=== PATIENT | male | born 2000 | race Caucasian/White ===

== ENCOUNTER 2019-02-03 18:15 | Emergency (ER) | payer OTHER ==
[~2019-02-03] VITALS: Ht 165.1 cm; Wt 79.1 kg
[2019-02-03 18:24] VITALS: Ht 165.1 cm; Wt 79.1 kg
[2019-02-03] MEDS: HYDROCODONE/APAP (5/325) TAB PO ONE ×2 (19:55→20:01)
[2019-02-03] MEDS ORDERED: LIDOCAINE 1% (MPF) 5 ML VIAL INFIL ONE (20:00)
[2019-02-03] MEDS ORDERED: SULF1TAB31 PO (20:54)
[2019-02-03] MEDS ORDERED: CEPH-443 PO (20:54)
[2019-02-03] MEDS ORDERED: IBUP-1561 PO (20:54)
--- NOTE | 2019-02-03 20:56 | ERD ---
ER Documentation Chief Complaint Chief Complaint localize swelling/redness abdominal area x 1 week HPI 18-year-old male with no significant past history presents for swelling and redness of the abdominal area x1 week. He states that there is a small mass with redness and pain. The pain is noted to be 8 out of 10, described as a burning sensation, constant, nonradiating. He denies any fevers or chills. Denies chest pain or shortness. No other modifying factors noted, no treatment tried at home. No previous similar symptoms noted. ROS All systems reviewed and are negative except as per history of present illness. Medications Home Meds Active Scripts Ibuprofen* (Motrin*) 400 Mg Tab, 400 MG PO Q6H PRN for PAIN, #30 TAB Prov:MELVAMARILOU 02/03/19 Cephalexin* (Keflex*) 500 Mg Capsule, 500 MG PO TID for skin infection for 7 Days, #21 CAP Prov:MARILOU FRYE DO 02/03/19 Sulfamethoxazole/Trimethoprim* (Bactrim Ds* Tablet) 1 Each Tablet, 1 TAB PO BID for skin infection for 7 Days, #14 TAB Prov:MARILOU FRYE 02/03/19 Allergies Allergies: Coded Allergies: No Known Drug Allergies (Verified Allergy, Unknown, 02/03/19) PMhx/Soc Medical and Surgical Hx: pt denies Medical Hx, pt denies Surgical Hx Hx Alcohol Use: Yes (socially) Hx Substance Use: Yes (mj) Hx Tobacco Use: No Smoking Status: Never smoker FmHx Family History: No coronary disease Physical Exam Vitals Vital Signs Date Temp Pulse Resp B/P (MAP) Pulse Ox O2 O2 Flow FiO2 Time Delivery Rate 02/03/19 99.2 89 18 134/60 98 18:24 (84) Physical Exam Const: No acute distress Resp: Clear to auscultation bilaterally Cardio: Regular rate and rhythm, no murmurs Abd: Soft, non tender, non distended. Normal bowel sounds Skin: Lower abdomen skin lesion noted, about 1cm with erythema, pain to palpation, induration, however nonfluctuant Back: No midline or flank tenderness Ext: No cyanosis, or edema Neur: Awake and alert Psych: Normal Mood and Affect Results 24 hrs Current Medications Medications Dose Sig/Cameron Start Time Status Last (Trade) Ordered Route PRN Stop Time Admin Dose Reason Admin 1 tab ONCE ONCE 02/03/19 DC 02/03/19 Acetaminophen PO 20:00 20:01 / 02/03/19 20:01 Hydrocodone Bitart ([place] (5/325)) Lidocaine 5 ml ONCE ONCE 02/03/19 DC (Xylocaine INFIL 20:00 1% (Mpf)) 02/03/19 20:01 Procedures/MDM Abscess Incision and Drainage with irrigation by me: Location: lower abdomen Anesthesia: [Local 1% Lidocaine without epinephrine] Technique: Irrigated. Needle insertion to the lesion and expression did not show pus drainage, consistent with an early abscess. Packing: [None] Complications: [Neurovascularly intact post procedure] 48 hour wound check. Scar minimization instructions given. Patient's skin symptoms have stabilized while they have been evaluated in the department and are appropriate for outpatient care and work up. Exam and w/u not consistent w/ sepsis, deep space infection, or foreign body. Medical Decision Making: Differential diagnosis includes but not limited to early abscess, cellulitis, fungal infection Patient appeared well on physical exam. There was a lower abdomen skin lesion noted with some induration. Skin lesion, mass was about 1 cm with erythema. There is no fluctuance noted. ED course: This examination consistent with an early abscess. Incision and drainage was attempted. See procedure noted above. Patient will be given a trial of antibiotics and advised to return to the ED for a recheck. He was advised that abscess may need to be drained if it begins to become fluctuant. Advised to return to the ER in 2 to 3 days for recheck. Patient given norco in the ER of pain which improved symptoms. Prescription(s): Patient given prescription for supportive medication(s) and antibiotic. Patient advised to follow up with PCP in 1-2 days. Patient advised to return to ED for new or worsening symptoms. Patient stable on discharge from the ED. Disclaimer: Inadvertent spelling and grammatical errors are likely due to EHR/dictation software use and do not reflect on the overall quality of patient care. Also, please note that the electronic time recorded on this note does not necessarily reflect the actual time of the patient encounter. Departure Diagnosis: Primary Impression: Abscess Condition: Fair Patient Instructions: Abscess, Antiobiotic Treatment Only Additional Instructions: Call your primary care doctor TOMORROW for an appointment during the next 1-2 days.See the doctor sooner or return here if your condition worsens before your appointment time. MARILOU FRYE DO February 03, 2019 20:56
[2019-02-03 21:08] VITALS: BP 137/78; PULSE 75; RESP 18
== END 2019-02-03 21:09 | disposition home or self-care (01) ==
LOC: FTE 18:15
DX: L02.211 Cutaneous abscess of abdominal wall (principal)
CPT/HCPCS: 10060; Z7502; Z7610

== ENCOUNTER 2019-02-09 11:05 | Emergency (ER) | payer OTHER ==
[~2019-02-09] VITALS: Wt 90.0 kg
[~2019-02-09 11:05] MED LIST: CEPH-443 PO; IBUP-1561 PO; SULF1TAB31 PO
[2019-02-09 11:08] VITALS: BP 117/59; PULSE 89; RESP 18
[2019-02-09] MEDS ORDERED: LIDOCAINE 1% (MDV) 20 ML INJ SC ONE (12:30)
[2019-02-09] MEDS ORDERED: LIDOCAINE 4% CR TOP ONE (12:30)
--- NOTE | 2019-02-09 13:40 | ERD ---
ER Documentation Chief Complaint Chief Complaint ABD ABCESS, HERE 2 WEEKS AGO HAD PX HPI 18-year-old male presents for recheck of right lower abdominal abscess. She reports that the abscess started losing on itself last night. He was seen on February 03 by provider in her ER and sent home with antibiotics of Keflex and Bactrim. Reports that he is been taking the antibiotics along with ibuprofen for pain management. He reports that the abscess is causing pain. He denies any fevers or other signs of systemic infection and is here today asking if we could I&D the abscess. Patient states he does not want any other medication for pain control at this time. ROS All systems reviewed and are negative except as per history of present illness. Medications Home Meds Active Scripts Ibuprofen* (Motrin*) 400 Mg Tab, 400 MG PO Q6H PRN for PAIN, #30 TAB Prov:FRYEMARILOU DO 02/03/19 Cephalexin* (Keflex*) 500 Mg Capsule, 500 MG PO TID for skin infection for 7 Days, #21 CAP Prov:MARILOU FRYE DO 02/03/19 Sulfamethoxazole/Trimethoprim* (Bactrim Ds* Tablet) 1 Each Tablet, 1 TAB PO BID for skin infection for 7 Days, #14 TAB Prov:FRYEMRAILOU 02/03/19 Allergies Allergies: Coded Allergies: No Known Drug Allergies (Verified Allergy, Unknown, 02/03/19) PMhx/Soc Hx Alcohol Use: Yes (socially) Hx Substance Use: Yes (mj) Hx Tobacco Use: No FmHx Family History: diabetes Physical Exam Vitals Vital Signs Date Temp Pulse Resp B/P (MAP) Pulse Ox O2 O2 Flow FiO2 Time Delivery Rate 02/09/19 98.1 89 18 117/59 99 11:08 (78) Physical Exam Const: No acute distress Resp: Clear to auscultation bilaterally Cardio: Regular rate and rhythm, no murmurs Abd: 1 inch leaking abscess located on right lower abd. Indurated. Neur: Awake and alert Psych: Normal Mood and Affect Results 24 hrs Current Medications Medications Dose Sig/Cameron Start Time Status Last (Trade) Ordered Route PRN Stop Time Admin Dose Reason Admin Lidocaine 1 applic ONCE ONCE 02/09/19 DC (Lmx 4% Plus) TOP 12:30 02/09/19 12:31 Lidocaine 20 ml ONCE ONCE 02/09/19 DC (Xylocaine SC 12:30 02/09/19 1% (Mdv) 20 12:31 ml) Procedures/MDM ED COURSE: The patient was stable throughout ED course. I kept the patient and/or family informed of laboratory and diagnostic imaging results throughout the ED course. PROCEDURES: Abscess Incision and Drainage with irrigation by me: Ray Real Location: Right lower abdomen Anesthesia: Local 1% Lidocaine Technique: Irrigated. Disrupted loculations w/ instrumentation Packing: Iodoform gauze Complications: Neurovascularly intact post procedure Dressing applied afterwards 48 hour wound check instructed. Scar minimization instructions given. MEDICATIONS GIVEN: none MEDICAL DECISION MAKING: Patient is a [18-year-old male presenting for right lower abdomen abscess. He was seen previously on February 03 by ER provider and given ibuprofen and Keflex and Bactrim. Patient reports that he has been taking all 3 medications on a regular scheduled basis. He reported that the abscess leaked spontaneously last night and is been slightly leaking this morning. Based on history and physical I have low suspicion for systematic infections. In the ER we did an I&D procedure which the patient tolerated well with no complications. The wound was dressed in sterile gauze. The patient was neurovascularly intact post-procedure. Post-procedural wound care was discussed with the patient and he will finish the course of antibiotics. He was instructed to follow-up in 2 days the vital signs were reviewed. Patient is afebrile. Patient was not hypoxic. Patient was hemodynamically stable. PRESCRIPTION: DISCHARGE: At this time, patient is stable for discharge and outpatient management. I have instructed the patient to follow-up with his/her primary care physician in 1-2 days. I have discussed with the patient the possibility of needing to see a specialist for further workup and imaging studies if symptoms persist. I have instructed the patient to promptly return to the ER for any new or worsening symptoms including increased pain, fever, nausea, vomiting, weakness or LOC. The patient and/or family expressed understanding of and agreement with this plan. All questions were answered. Home care instructions were provided. Disclaimer: Inadvertent spelling and grammatical errors are likely due to EHR/dictation software use and do not reflect on the overall quality of patient care. Also, please note that the electronic time recorded on this note does not necessarily reflect the actual time of the patient encounter. Departure Condition: RAY Beasley PA-C Feb 09, 2019 13:19
== END 2019-02-09 13:59 | disposition home or self-care (01) ==
LOC: FTE 11:05
DX: L02.211 Cutaneous abscess of abdominal wall (principal)
CPT/HCPCS: 10060; Z7502; Z7610

== ENCOUNTER 2019-02-11 11:22 | Emergency (ER) | payer OTHER ==
[~2019-02-11] VITALS: Ht 162.6 cm; Wt 78.1 kg
[2019-02-11 11:23] VITALS: BP 133/70; PULSE 78; RESP 18; Ht 162.6 cm; Wt 78.1 kg
--- NOTE | 2019-02-11 12:30 | ERD ---
ER Documentation Chief Complaint Chief Complaint check I&D wound HPI 18-year-old male presenting for wound check to an abscess performed 2 days ago. Patient had I&D to an abscess to his suprapubic region. Patient is taking his antibiotics as prescribed. Denies any fevers. Denies pain. Denies other medical problems. NKDA. Surgical history denies. Social history smokes marijuana and cigarettes. ROS All systems reviewed and are negative except as per history of present illness. Medications Home Meds Active Scripts Ibuprofen* (Motrin*) 400 Mg Tab, 400 MG PO Q6H PRN for PAIN, #30 TAB Prov:MARILOU FRYE DO 02/03/19 Cephalexin* (Keflex*) 500 Mg Capsule, 500 MG PO TID for skin infection for 7 Days, #21 CAP Prov:MARILOU FRYE DO 02/03/19 Sulfamethoxazole/Trimethoprim* (Bactrim Ds* Tablet) 1 Each Tablet, 1 TAB PO BID for skin infection for 7 Days, #14 TAB Prov:MARILOU FRYE DO 02/03/19 Allergies Allergies: Coded Allergies: No Known Drug Allergies (Verified Allergy, Unknown, 02/03/19) PMhx/Soc Medical and Surgical Hx: pt denies Medical Hx, pt denies Surgical Hx Hx Alcohol Use: Yes (socially) Hx Substance Use: Yes (mj) Hx Tobacco Use: No Smoking Status: Never smoker FmHx Family History: No diabetes, No coronary disease, No other Physical Exam Vitals Vital Signs Date Temp Pulse Resp B/P (MAP) Pulse Ox O2 O2 Flow FiO2 Time Delivery Rate 02/11/19 97.9 78 18 133/70 98 11:23 (91) Physical Exam GENERAL: The patient is well-appearing, well-nourished, in no acute distress CHEST: Clear to auscultation bilaterally. There are no rales, wheezes or rhonchi. HEART: Regular rate and rhythm. No murmurs, clicks, rubs or gallops. ABDOMEN:Soft, nontender and nondistended. Good bowel sounds. No rebound or guarding. No gross peritonitis. No gross organomegaly or masses. SKIN: Previous I&D site noted inferior to the umbilicus. Mild surrounding erythema with no fluctuance on palpation. Procedures/MDM MDM: 18-year-old male presenting for wound recheck. Patient's wound appears to be healing appropriately. Patient is told to clean it soap and water at home and to continue antibiotics as previously prescribed. I do not feel there is indication for repacking at this time. Patient is discharged with strict ER precautions and recommended to follow-up with primary care. All questions answered at discharge Departure Diagnosis: Primary Impression: Encounter for wound re-check Condition: Stable Patient Instructions: Wound Care Referrals: COMMUNITY CLINICS YOU HAVE RECEIVED A MEDICAL SCREENING EXAM AND THE RESULTS INDICATE THAT YOU DO NOT HAVE A CONDITION THAT REQUIRES URGENT TREATMENT IN THE EMERGENCY DEPARTMENT. FURTHER EVALUATION AND TREATMENT OF YOUR CONDITION CAN WAIT UNTIL YOU ARE SEEN IN YOUR DOCTORS OFFICE WITHIN THE NEXT 1-2 DAYS. IT IS YOUR RESPONSIBILITY TO MAKE AN APPOINTMENT FOR FOLOW-UP CARE. IF YOU HAVE A PRIMARY DOCTOR --you should call your primary doctor and schedule an appointment IF YOU DO NOT HAVE A PRIMARY DOCTOR YOU CAN CALL OUR PHYSICIAN REFERRAL HOTLINE AT IF YOU CAN NOT AFFORD TO SEE A PHYSICIAN YOU CAN CHOSE FROM THE FOLLOWING [facility] CLINICS [facility] [address] [facility] [address] [employer] [facility] [address] [facility] [address] [facility] [address] [facility] [facility]. [address] Additional Instructions: FOLLOW UP WITH YOUR PRIMARY CARE PHYSICIAN TOMORROW.Return to this facility if you are not improving as expected. GABBIE MILES PA-C Feb 11, 2019 12:29
== END 2019-02-11 12:08 | disposition home or self-care (01) ==
LOC: FTE 11:22
DX: Z48.01 Encounter for change or removal of surgical wound dressing (principal); F17.210 Nicotine dependence, cigarettes, uncomplicated
CPT/HCPCS: 99281